=== PATIENT | male | born 1975 | race Asian ===

== ENCOUNTER 2018-01-12 20:36 | Emergency (ER) | payer OTHER ==
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
[2018-01-12 22:03] VITALS: BP 132/74
== END 2018-01-12 22:01 | disposition home or self-care (01) ==
PROC: 2W3CX1Z Immobilization of Right Lower Arm using Splint (ICD-10-PCS; principal; 2018-01-12)
DX: S62.231A Other displaced fracture of base of first metacarpal bone, right hand, initial encounter for closed fracture (principal); V18.4XXA Pedal cycle driver injured in noncollision transport accident in traffic accident, initial encounter; Y92.410 Unspecified street and highway as the place of occurrence of the external cause; Y99.8 Other external cause status; Y93.55 Activity, bike riding